=== PATIENT | male | born 1985 | race Caucasian/White ===

== ENCOUNTER 2023-07-01 22:18 | Emergency (ER) | payer OTHER ==
[2023-07-01] MEDS: IBUPROFEN 400 MG TABLET (FP) PO ONE (22:40)
[2023-07-01 22:53] VITALS: BP 116/72; PULSE 79; RESP 16; TEMP 98.1; BMI 25.0
== END 2023-07-01 23:29 | disposition home or self-care (01) ==
LOC: FER 22:18
DX: S93.401A Sprain of unspecified ligament of right ankle, initial encounter (principal); M25.571 Pain in right ankle and joints of right foot; W50.0XXA Accidental hit or strike by another person, initial encounter; X50.1XXA Overexertion from prolonged static or awkward postures, initial encounter; Y93.67 Activity, basketball
CPT/HCPCS: 73610-TC-RT-FY; 73630-TC-RT-FY; 99283-25